=== PATIENT | female | born 1980 | race Two or more races ===

== ENCOUNTER 2018-06-10 14:50 | Emergency (ER) | payer OTHER ==
[~2018-06-10] VITALS: Ht 162.6 cm; Wt 126.0 kg
--- NOTE | 2018-06-10 16:57 | REP ---
RIGHT KNEE, FIVE VIEWS: HISTORY: Fall. There is no acute fracture or dislocation. There is mild narrowing of the medial knee joint space. The lateral knee joint space is normal in appearance. There is lateral displacement of the patella in the sunrise view. IMPRESSION: There is no acute fracture or dislocation. Electronically Signed by Junior Davis MD 06/10/2018 05:03 P
[2018-06-10 17:13] VITALS: BP 170/82
== END 2018-06-10 17:20 | disposition home or self-care (01) ==
LOC: M ED 14:50
DX: S83.91XA Sprain of unspecified site of right knee, initial encounter (principal); W19.XXXA Unspecified fall, initial encounter; Y92.9 Unspecified place or not applicable; Y93.9 Activity, unspecified; Y99.9 Unspecified external cause status; G47.30 Sleep apnea, unspecified

== ENCOUNTER → 2019-09-10 | Outpatient (REF) | payer OTHER | LOC: M SFHCLUC 13:15 | PROVIDERS: ATTEND Physician Assistant | DX: N39.0 Urinary tract infection, site not specified (principal) | CPT/HCPCS: 81002; 81025; 87088; 87186; G0463 ==

== ENCOUNTER → 2019-10-23 | Day surgery (SDC) | payer OTHER ==
[~2019-10-23] VITALS: Ht 162.6 cm; Wt 117.5 kg
[~2019-10-23] MED LIST: ACETAMINOPHEN 650 MG SUPP As Ordered ONE; KETOROLAC 30 MG/ML 1ML VIAL IV PRN; LIDOCAINE 2% 100MG/5ML SDV (FOR ANES.) As Ordered ONE; LR 1,000 ML IV SCH; METOCLOPRAMIDE INJ 10MG/2ML VIAL (J2765 PER 1) IV PRN; MIDAZOLAM INJ 2MG/2ML VIAL (J2250 PER 1MG) As Ordered ONE; NS 1,000 ML IV ONE; ONDANSETRON 4MG/2ML VIAL As Ordered ONE; ONDANSETRON 4MG/2ML VIAL IV PRN; OXYTOCIN INJ 10 UNITS/ML VIAL (J2590) As Ordered ONE; PERCOCET 5MG/325MG TAB PO PRN; dexameTHASONE 4 MG/ML 1ML VIAL (J1100 PER 1MG) As Ordered ONE; fentaNYL 100 MCG/2 ML INJECTION (J3010) As Ordered ONE; fentaNYL 100 MCG/2 ML INJECTION (J3010) IV PRN; propofoL 200 MG/20 ML VIAL As Ordered ONE
[2019-10-23 09:12] LABS: BASO % 0.4 % (0.0-1.0); EOS # 0.1 10^3/uL (0.0-0.5); EOS % 1.2 % (0.0-3.0); HEMATOCRIT 41.6 % (36.0-47.0); HEMOGLOBIN 13.1 g/dl (12.0-15.5); LYMPH # 2.2 10^3/uL (1.5-5.0); LYMPH % 25.5 % (24.0-44.0); MEAN CORPUSCULAR HEMOGLOBIN 26.4 pg (27.0-33.0); MEAN CORPUSCULAR HGB CONC 31.5 g/dl (32.0-36.5); MEAN CORPUSCULAR VOLUME 83.9 fl (80.0-96.0); MONO # 0.4 10^3/uL (0.0-0.8); MONO % 4.3 % (0.0-5.0); NEUTROPHILS # 5.8 10^3/uL (1.5-8.5); PLATELET COUNT, AUTOMATED 263 10^3/uL (150-450); RED BLOOD COUNT 4.96 10^6/uL (4.00-5.40); WHITE BLOOD COUNT 8.5 10^3/uL (4.0-10.0)
[2019-10-23 10:45] LABS: BLOOD UREA NITROGEN 12 MG/DL (7-18); CARBON DIOXIDE LEVEL 26 MEQ/L (21-32); CHLORIDE LEVEL 105 MEQ/L (98-107); CREATININE FOR GFR 0.67 MG/DL (0.55-1.30); GLOMERULAR FILTRATION RATE > 60.0 (>58); GLUCOSE, FASTING 76 MG/DL (70-100); HCG, SERUM QUANTITATIVE 9957 MIU/ML; POTASSIUM SERUM 4.2 MEQ/L (3.5-5.1); SODIUM LEVEL 136 MEQ/L (136-145)
[2019-10-23 12:00] VITALS: BP 122/69
--- NOTE | 2019-11-08 11:36 | RO ---
DATE OF OPERATION: 10/23/2019 PREOPERATIVE DIAGNOSIS: Missed . POSTOPERATIVE DIAGNOSIS: Missed . OPERATION PROPOSED: Suction curettage. OPERATION PERFORMED: Suction curettage. After adequate timeout, prepped and draped in the lithotomy position bladder was drained for 150 mL of clear urine. Weighted speculum in vagina. Single-tooth tenaculum on the anterior lip of the cervix. Uterus sounded to a depth of 11 cm. Dilated to a Hegar 10. Curved suction curette applied. Curettage to the cavity was smooth. Uterus replaced in anatomical position well contracted under Pitocin. Patient's A positive does not require RhoGAM. With the uterus in anatomical position well contracted, instrument and pad count correct, the patient was sent to recovery in good condition. [facility]
== END | disposition home or self-care (01) ==
LOC: M ED 07:58 → M SDC 07:59
PROVIDERS: ATTEND Obstetrics & Gynecology
DX: O02.1 Missed abortion (principal); O13.9 Gestational [pregnancy-induced] hypertension without significant proteinuria, unspecified trimester; E66.9 Obesity, unspecified; K21.9 Gastro-esophageal reflux disease without esophagitis
CPT/HCPCS: 59820; 80048; 84702; 85025; 86850; 86900; 86901; 88305; 99284; J1100; J2250; J2405; J2590; J3010